=== PATIENT | female | born 1990 | race African-American/Black ===

== ENCOUNTER 2016-08-09 00:46 | Emergency (ER) | payer OTHER ==
[2016-08-09] MEDS ORDERED: SODIUM BICARBONATE 8.4% INJ 50 ML SYRINGE ONE (00:47)
[2016-08-09] MEDS ORDERED: EPINEPHrine 1MG/10ML SYRINGE 1.5IN ONE (00:47)
[2016-08-09] MEDS ORDERED: EPINEPHrine 1MG/10ML SYRINGE 1.5IN As Ordered ONE ×2 (01:22→01:26)
--- NOTE | 2016-08-09 05:21 | EDDOCDS ---
Nurse's Notes [facility] Name: Clara Magaña Age: 26 yrs Sex: Female : 1990 Arrival Date: 08/09/2016 Time: 00:46 Bed Family 1 Private MD: Sarthak Funez [facility] Diagnosis: Cardiac arrest, cause unspecified-PE suspected Presentation: 08/09 00:48 Presenting complaint: EMS states: pt laying face down on bed when EMS arrived. Pt ko2 responded to painful stimuli with moaning. Pt was maintaining own airway. She started having decreased respirations in the ambulance, EMS started manually bagging. Pt is 2 weeks . 00:48 Method Of Arrival: Ambulance ko2 00:48 Suicide/Homicide risk assessment- Unable to assess, the patient is critically ill. 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 Transition of care: patient was not received from another setting of care. Care prior to arrival: See EMS report. assisted ventilation, Saline lock initiated. Oxygen administered by EMS. 01:08 Acuity: MARCI Level 1 aug 03:26 Compressions began at 00:48. ko2 Triage Assessment: 00:48 General: Appears Behavior is listless. Pain: Unable to use pain scale. Patient is ko2 unresponsive. HIV screening NA for this visit pt unresponsive. The patient is triaged at the bedside. See Assessment in Nurses Notes section of ED record. Neurological:. Neurological: Level of Consciousness is unresponsive. Cardiovascular: Rhythm is PEA. Respiratory: Respiratory effort is weak. Derm: Skin is normal, Skin temperature is cool. 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 Vitamin Oral tab 1 tab once daily - PMHx: none; - PSHx: none; - Family history: Not pertinent. Assessment: 00:48 CPR assessment: unresponsive, no respiratory effort, Ambu ventilation, pulses absent w/ ko2 compressions. Cardiac rhythm is PEA. 00:53 CPR assessment: unresponsive, intubated, Ambu ventilation, red frothy secretions out of ko2 endotracheal tube. 00:56 CPR assessment: no respiratory effort, pulses absent w/ compressions. Cardiac rhythm is ko2 PEA. Neurological: Level of Consciousness is unresponsive. 01:02 CPR assessment: unresponsive, no respiratory effort, Ambu ventilation, pulses absent w/ ko2 compressions. Cardiac rhythm is PEA. 01:05 CPR assessment: no respiratory effort, Ambu ventilation, pulses absent w/ compressions. ko2 01:08 CPR assessment: unresponsive, intubated, Ambu ventilation, pulses absent w/ ko2 compressions. Cardiac rhythm is V tach. 01:11 CPR assessment: no respiratory effort, intubated, Ambu ventilation, pulses absent w/ ko2 compressions. Cardiac rhythm is V tach. Neurological: Level of Consciousness is unresponsive. 01:13 CPR assessment: unresponsive, no respiratory effort, intubated, Ambu ventilation, ko2 pulses absent w/ compressions. Cardiac rhythm is V tach. 01:16 CPR assessment: mechanical ventilation. CPR assessment: unresponsive, agonal ko2 respirations, no respiratory effort, Ambu ventilation, pulses absent w/ compressions. Cardiac rhythm is V tach. 01:19 CPR assessment: unresponsive, agonal respirations, no respiratory effort, intubated, ko2 Ambu ventilation, pulses absent w/ compressions. Cardiac rhythm is V tach. 01:25 CPR assessment: unresponsive, agonal respirations, no respiratory effort, Ambu ko2 ventilation, pulses absent w/ compressions. Cardiac rhythm is PEA. 01:29 CPR assessment: unresponsive, agonal respirations, no respiratory effort, Ambu ko2 ventilation, pulses absent w/ compressions. Cardiac rhythm is PEA. 01:33 CPR assessment: unresponsive, no respiratory effort, Ambu ventilation, pulses absent w/ ko2 compressions. Cardiac rhythm is PEA. 03:38 General: Unable to obtain blood pressure on pt . ko2 Social Work Consult: 01:53 Social Work Note: Assisted as needed. Extended emotional support. rb Vitals: 02:29 Log In Time N/A - ambulance arrival. ko2 ED Course: 00:47 Patient visited by Fidel Carey Data Consultant. ml3 00:47 Patient moved to Waiting ml3 00:48 [facility] is Private Physician. ml3 00:48 Leonor Lockhart,JENNIFER is Primary Nurse. ml3 00:48 Patient moved to 2 ml3 00:49 Amadou Hamilton MD is Attending Physician. pc 00:53 Intubation: 7.5 Fr. ETT placed orally. Performed by Dr. Hamilton Successful on first ko2 attempt. Placement verified by CO2 detector w/ + color change, auscultating bilateral breath sounds, Ventilated with Ambu bag. 22 cm at the lip. 00:55 Inserted saline lock: 20 gauge in right forearm. ko2 01:00 NGT inserted 18 Fr. Via orogastric route Returned gastric contents. ko2 01:08 Triage Initiated aug 01:09 Defibrillated with 200 joules. ko2 01:12 Defibrillated with 300 joules. ko2 01:17 Defibrillated with 360 joules. ko2 01:37 Patient visited by Amadou Hamilton MD. pc 01:38 Amadou Hamilton MD is Pronouncing Provider. pc 02:11 Trend VS was scanned into [employer] and attached to record. ml3 02:31 [facility] Payment Agreement was scanned into [employer] and attached to record. jp5 02:33 Patient name changed from Clara\S\\S\Early\S\ to Clara\S\ \S\Early. EDMS 04:24 PCR was scanned into [employer] and attached to record. ml3 04:58 Patient moved to Family 1 aug Administered Medications: 00:49 Drug: EPINEPHrine 1 mg [epinephrine HCl (PF) 1 mg/mL (1 mL) intravenous solution (1 ko2 mL)] Route: IVP; Site: left antecubital; 00:55 Drug: EPINEPHrine 1 mg [epinephrine HCl (PF) 1 mg/mL (1 mL) intravenous solution (1 ko2 mL)] Route: IVP; Site: left antecubital; 01:00 Drug: EPINEPHrine 1 mg [epinephrine HCl (PF) 1 mg/mL (1 mL) intravenous solution (1 ko2 mL)] Route: IVP; Site: right forearm; 01:00 Drug: Sodium Bicarbonate 1 amp Route: IVP; Site: right forearm; ko2 01:06 Drug: EPINEPHrine 1 mg [epinephrine HCl (PF) 1 mg/mL (1 mL) intravenous solution (1 ko2 mL)] Route: IVP; Site: right forearm; 01:10 Drug: EPINEPHrine 1 mg [epinephrine HCl (PF) 1 mg/mL (1 mL) intravenous solution (1 ko2 mL)] Route: IVP; Site: right forearm; 01:14 Drug: EPINEPHrine 1 mg [epinephrine HCl (PF) 1 mg/mL (1 mL) intravenous solution (1 ko2 mL)] Route: IVP; Site: right forearm; 01:20 Drug: EPINEPHrine 1 mg [epinephrine HCl (PF) 1 mg/mL (1 mL) intravenous solution (1 ko2 mL)] Route: IVP; Site: right forearm; 01:26 Drug: EPINEPHrine 1 mg [epinephrine HCl (PF) 1 mg/mL (1 mL) intravenous solution (1 ko2 mL)] Route: IVP; Site: right forearm; 01:29 Drug: EPINEPHrine 1 mg [epinephrine HCl (PF) 1 mg/mL (1 mL) intravenous solution (1 ko2 mL)] Route: IVP; Site: right forearm; Attachments: 02:11 Trend VS ml3 RT: 01:40 CPR Time: 55Minutes. Intubation: Performed by Dr. Hamilton. placed orally. 7.5 Fr. ETT jc3 Successful on first attempt. Placement verified by CO2 detector w/ + color change, auscultating bilateral breath sounds, Ventilated with Ambu bag. Order Results: There are currently no results for this order. Outcome: 01:38 Patient . pc 03:27 Code Team Members : Amadou Hamilton MD Respiratory Therapist: Jaime Mandel Other Team ko2 Members: Medications administered by Nursing Professor Of Biostatistics Estee Hart. CPR performed by Denita Taylor, HOSPICE CASE MANAGER Rosaura Diamond, HOSPICE CASE MANAGER Jason Galindo, HOSPICE CASE MANAGER Viri Hupmhries, Charge Nurse Nursing Professor Of Biostatistics: Estee Hart ED Instant Printer Operator: Tamara Fajardo. Rhythm strips are placed in the patient chart. Outcome Patient . Patient : Time of 01:33 Pronounced by Amadou Hamilton MD. Condition: . 05:02 Patient : Time of 01:33 Pronounced by Amadou Hamilton MD Family Notified: mata Magaña [phone] notifed of ED . [facility] Body released to ME ME notified Amadou Agarwal MD notified Dr Zendejas in ED at timer of resusitation. 05:20 Patient left the ED. mata Signatures: Dispatcher [employer] EDMS Amadou Hamilton MD MD pc Newman, Viri Sidhu RN RN mata Fajardo, Tamara, Fidel Mulligan, Data Consultant Unit marcellus3 Luis Antonio Nam3 Moody Gauthier,RN RN theodoreb Leonor LockhartRN RN ko2 Morales Bethroverto jp5 Corrections: (The following items were deleted from the chart) : 01:04 Allergies: Vitamin; yash berrios : 00:48 Presenting complaint: EMS states: pt laying face down on bed when EMS arrived. Pt ko2 responded to painful stimuli with moaning. Pt was maintaining own airway. She started having decreased respirations in the ambulance, EMS started manually bagging. ko2 : 00:48 Suicide/Homicide risk assessment- Unable to assess, the patient is critically ko2 ill. ko2 : 00:48 Care prior to arrival: See EMS report. assisted ventilation, Saline lock ko2 initiated. Oxygen administered by EMS. ko2 03:04 00:53 CPR assessment: unresponsive, intubated, mechanical ventilation, ko2 ko2 03:04 01:02 CPR assessment: unresponsive, no respiratory effort, pulses absent w/ ko2 compressions, ko2 03:04 01:05 CPR assessment: no respiratory effort, pulses absent w/ compressions, ko2 ko2 03:04 01:08 CPR assessment: unresponsive, pulses absent w/ compressions, ko2 ko2 03:04 01:11 CPR assessment: no respiratory effort, intubated, mechanical ventilation, pulses ko2 absent w/ compressions, ko2 03:04 01:13 CPR assessment: unresponsive, no respiratory effort, intubated, mechanical ko2 ventilation, pulses absent w/ compressions, ko2 03:04 01:16 CPR assessment: unresponsive, agonal respirations, no respiratory effort, pulses ko2 absent w/ compressions, ko2 03:04 01:19 CPR assessment: unresponsive, agonal respirations, no respiratory effort, ko2 intubated, Ambu ventilation, pulses absent w/ compressions, ko2 03:26 00:53 Intubation: 7.5 Fr. ETT placed orally. Performed by Dr. Hamilton Successful on first ko2 attempt. Placement verified by auscultating bilateral breath sounds, Ventilated with Ambu bag. 22 cm at the lip. ko2 03:33 01:08 Defibrillated with 200 joules. ko2 ko2 03:36 00:53 CPR assessment: unresponsive, intubated, Ambu ventilation, ko2 ko2 MTDD
--- NOTE | 2016-08-09 05:21 | EDDOCDS ---
Physician Documentation [facility] Name: Clara Magaña Age: 26 yrs Sex: Female : 1990 Arrival Date: 08/09/2016 Time: 00:46 Bed Family 1 Private MD: Sarthak Funez [facility] Disposition: 08/09 02:38 Critical Care:. pc Disposition: Patient pronounced on 08/09/16 01:33 by Amadou Hamilton. Impression: Cardiac arrest, cause unspecified - PE suspected. HPI: 01:38 This 26 yrs old Female presents to ER with complaints of Unresponsive. pc 01:38 The history is obtained from the patient's family/friend, EMS providers. She is 2 weeks pc post- from an uncomplicated vaginal delivery and has been in good health. Her S.O. was getting ready to take a shower and she was in the bedroom with him. She suddenly complained of feeling hot and he went ot get a cold face cloth for her. He came out of the bathroom and saw her slump to her hands and knees. She was moaning and then fell forward onto the floor and became unresponsive. He lifted her up onto the bed and EMS was called. They found her unresponsive, moaning to painful stimuli only, with slow respirations and with a pulse.. They transported her here, where on en route, she became apneic and required BVM respirations. She arrived pulseless and unresponsive. ACLS was initiated. She had copious amounts of bloody, frothy sputum suctioned and continually exiting the BVM vent. She did not recover a pulse at any time. She had a wide complex rhythm that with defibrillation at 200/300/360J did not produce a different rhythm. ACLS protocols for PEA were continued without success. AT 0133h, all efforts were terminated. Historical: - Allergies: No known drug Allergies; - Home Meds: 1. Vitamin Oral tab 1 tab once daily - PMHx: none; - PSHx: none; - Family history: Not pertinent. 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 Calves pc soft and supple. Pupils 8mm and not reactive. No spontaneous heart sounds, no spontaneous respirations. . Procedures: 02:22 Intubation: Ventilated with 100% NRB prior to procedure. O2 saturation prior to pc procedure was 80 %. Intubated orally using # 4 Luis blade with 7.5 Fr. ETT. was successful on first attempt. Ventilated with Ambu bag. Placement verified by CO2 detector w/ + color change, auscultating bilateral breath sounds, O2 saturation after procedure was 88 %. MDM: 01:49 Differential Diagnosis: cardiac arrest, suspected PE. The patient has been re-examined pc and re-evaluated. There is no appreciated change of the patient's symptoms at this time. 02:11 Trend VS was scanned into [employer] and attached to record. ml3 02:22 Physician consultation: Dr. Timoteo aPvon regarding patient's condition. 02:31 [facility] Payment Agreement was scanned into [employer] and attached to record. 5 02:31 Financial registration complete. jp5 03:12 EPINEPHrine (1:10,000) 1 mg IVP once ordered. ko2 03:15 EPINEPHrine (1:10,000) 1 mg IVP once ordered. ko2 03:16 EPINEPHrine (1:10,000) 1 mg IVP once ordered. ko2 03:17 Sodium Bicarbonate 1 amp IVP once ordered. ko2 03:18 EPINEPHrine (1:10,000) 1 mg IVP once ordered. ko2 03:19 EPINEPHrine (1:10,000) 1 mg IVP once ordered. ko2 03:22 EPINEPHrine (1:10,000) 1 mg IVP once ordered. ko2 03:23 EPINEPHrine (1:10,000) 1 mg IVP once ordered. ko2 03:24 EPINEPHrine (1:10,000) 1 mg IVP once ordered. ko2 03:24 EPINEPHrine (1:10,000) 1 mg IVP once ordered. ko2 04:24 PCR was scanned into [employer] and attached to record. ml3 Administered Medications: 00:49 Drug: EPINEPHrine 1 mg [epinephrine HCl (PF) 1 mg/mL (1 mL) intravenous solution (1 ko2 mL)] Route: IVP; Site: left antecubital; 00:55 Drug: EPINEPHrine 1 mg [epinephrine HCl (PF) 1 mg/mL (1 mL) intravenous solution (1 ko2 mL)] Route: IVP; Site: left antecubital; 01:00 Drug: EPINEPHrine 1 mg [epinephrine HCl (PF) 1 mg/mL (1 mL) intravenous solution (1 ko2 mL)] Route: IVP; Site: right forearm; 01:00 Drug: Sodium Bicarbonate 1 amp Route: IVP; Site: right forearm; ko2 01:06 Drug: EPINEPHrine 1 mg [epinephrine HCl (PF) 1 mg/mL (1 mL) intravenous solution (1 ko2 mL)] Route: IVP; Site: right forearm; 01:10 Drug: EPINEPHrine 1 mg [epinephrine HCl (PF) 1 mg/mL (1 mL) intravenous solution (1 ko2 mL)] Route: IVP; Site: right forearm; 01:14 Drug: EPINEPHrine 1 mg [epinephrine HCl (PF) 1 mg/mL (1 mL) intravenous solution (1 ko2 mL)] Route: IVP; Site: right forearm; 01:20 Drug: EPINEPHrine 1 mg [epinephrine HCl (PF) 1 mg/mL (1 mL) intravenous solution (1 ko2 mL)] Route: IVP; Site: right forearm; 01:26 Drug: EPINEPHrine 1 mg [epinephrine HCl (PF) 1 mg/mL (1 mL) intravenous solution (1 ko2 mL)] Route: IVP; Site: right forearm; 01:29 Drug: EPINEPHrine 1 mg [epinephrine HCl (PF) 1 mg/mL (1 mL) intravenous solution (1 ko2 mL)] Route: IVP; Site: right forearm; Critical Care Time: 02:38 Critical care time: Bedside Care: 50 minutes, Consultation: 10 minutes, Family pc Intervention: 20 minutes. Total time: 80 minutes Signatures: Amadou Hamilton MD MD pc Newman, Jill New, RN RN jan Lopresti, Mary-Elizabeth, Channeler Insole Unit ml3 Moody Gauthier RN RN jmb Ogden, Kari, RN RN ko2 Sam Nielsen jp5 The chart was reviewed and I authenticate all verbal orders and agree with the evaluation and treatment provided.Corrections: (The following items were deleted from the chart) 02:24 01:04 Allergies: Vitamin; yash berrios Attachments: 02:31 [facility] Payment Agreement jp5 MTDD
--- NOTE | 2016-08-09 05:38 | EDDOCDS ---
Physician Documentation [facility] Name: Clara Magaña Age: 26 yrs Sex: Female : 1990 Arrival Date: 08/09/2016 Time: 00:46 Bed Family 1 Private MD: Sarthak Funez [facility] Disposition: 08/09 02:38 Critical Care:. pc Disposition: Patient pronounced on 08/09/16 01:33 by Amadou Hamilton. Impression: Cardiac arrest, cause unspecified - PE suspected. HPI: 01:38 This 26 yrs old Female presents to ER with complaints of Unresponsive. pc 01:38 The history is obtained from the patient's family/friend, EMS providers. She is 2 weeks pc post- from an uncomplicated vaginal delivery and has been in good health. Her S.O. was getting ready to take a shower and she was in the bedroom with him. She suddenly complained of feeling hot and he went ot get a cold face cloth for her. He came out of the bathroom and saw her slump to her hands and knees. She was moaning and then fell forward onto the floor and became unresponsive. He lifted her up onto the bed and EMS was called. They found her unresponsive, moaning to painful stimuli only, with slow respirations and with a pulse.. They transported her here, where on en route, she became apneic and required BVM respirations. She arrived pulseless and unresponsive. ACLS was initiated. She had copious amounts of bloody, frothy sputum suctioned and continually exiting the BVM vent. She did not recover a pulse at any time. She had a wide complex rhythm that with defibrillation at 200/300/360J did not produce a different rhythm. ACLS protocols for PEA were continued without success. AT 0133h, all efforts were terminated. Historical: - Allergies: No known drug Allergies; - Home Meds: 1. Vitamin Oral tab 1 tab once daily - PMHx: none; - PSHx: none; - Family history: Not pertinent. OPERATIONS ADVISOR: 02:29 LMP N/A - Recent ko2 Exam: 01:47 General Appearance: No signs of trauma on head or neck, thorax or extremities. Calves pc soft and supple. Pupils 8mm and not reactive. No spontaneous heart sounds, no spontaneous respirations. . Procedures: 02:22 Intubation: Ventilated with 100% NRB prior to procedure. O2 saturation prior to pc procedure was 80 %. Intubated orally using # 4 Luis blade with 7.5 Fr. ETT. was successful on first attempt. Ventilated with Ambu bag. Placement verified by CO2 detector w/ + color change, auscultating bilateral breath sounds, O2 saturation after procedure was 88 %. MDM: 01:49 Differential Diagnosis: cardiac arrest, suspected PE. The patient has been re-examined pc and re-evaluated. There is no appreciated change of the patient's symptoms at this time. 02:11 Trend VS was scanned into [employer] and attached to record. ml3 02:22 Physician consultation: Dr. Timoteo Pavon regarding patient's condition. 02:31 [facility] Payment Agreement was scanned into [employer] and attached to record. 5 02:31 Financial registration complete. jp5 03:12 EPINEPHrine (1:10,000) 1 mg IVP once ordered. ko2 03:15 EPINEPHrine (1:10,000) 1 mg IVP once ordered. ko2 03:16 EPINEPHrine (1:10,000) 1 mg IVP once ordered. ko2 03:17 Sodium Bicarbonate 1 amp IVP once ordered. ko2 03:18 EPINEPHrine (1:10,000) 1 mg IVP once ordered. ko2 03:19 EPINEPHrine (1:10,000) 1 mg IVP once ordered. ko2 03:22 EPINEPHrine (1:10,000) 1 mg IVP once ordered. ko2 03:23 EPINEPHrine (1:10,000) 1 mg IVP once ordered. ko2 03:24 EPINEPHrine (1:10,000) 1 mg IVP once ordered. ko2 03:24 EPINEPHrine (1:10,000) 1 mg IVP once ordered. ko2 04:24 PCR was scanned into [employer] and attached to record. ml3 Administered Medications: 00:49 Drug: EPINEPHrine 1 mg [epinephrine HCl (PF) 1 mg/mL (1 mL) intravenous solution (1 ko2 mL)] Route: IVP; Site: left antecubital; 00:55 Drug: EPINEPHrine 1 mg [epinephrine HCl (PF) 1 mg/mL (1 mL) intravenous solution (1 ko2 mL)] Route: IVP; Site: left antecubital; 01:00 Drug: EPINEPHrine 1 mg [epinephrine HCl (PF) 1 mg/mL (1 mL) intravenous solution (1 ko2 mL)] Route: IVP; Site: right forearm; 01:00 Drug: Sodium Bicarbonate 1 amp Route: IVP; Site: right forearm; ko2 01:06 Drug: EPINEPHrine 1 mg [epinephrine HCl (PF) 1 mg/mL (1 mL) intravenous solution (1 ko2 mL)] Route: IVP; Site: right forearm; 01:10 Drug: EPINEPHrine 1 mg [epinephrine HCl (PF) 1 mg/mL (1 mL) intravenous solution (1 ko2 mL)] Route: IVP; Site: right forearm; 01:14 Drug: EPINEPHrine 1 mg [epinephrine HCl (PF) 1 mg/mL (1 mL) intravenous solution (1 ko2 mL)] Route: IVP; Site: right forearm; 01:20 Drug: EPINEPHrine 1 mg [epinephrine HCl (PF) 1 mg/mL (1 mL) intravenous solution (1 ko2 mL)] Route: IVP; Site: right forearm; 01:26 Drug: EPINEPHrine 1 mg [epinephrine HCl (PF) 1 mg/mL (1 mL) intravenous solution (1 ko2 mL)] Route: IVP; Site: right forearm; 01:29 Drug: EPINEPHrine 1 mg [epinephrine HCl (PF) 1 mg/mL (1 mL) intravenous solution (1 ko2 mL)] Route: IVP; Site: right forearm; Critical Care Time: 02:38 Critical care time: Bedside Care: 50 minutes, Consultation: 10 minutes, Family pc Intervention: 20 minutes. Total time: 80 minutes Signatures: Amadou Hamilton MD MD pc Newman, Jill New, RN RN jan Lopresti, Mary-Elizabeth, Deck Lid Fitter Unit ml3 Moody Gauthier RN RN jmb Ogden, Kari, RN RN ko2 Sam Nielsen jp5 The chart was reviewed and I authenticate all verbal orders and agree with the evaluation and treatment provided.Corrections: (The following items were deleted from the chart) 02:24 01:04 Allergies: Vitamin; yash berrios Attachments: 02:31 [facility] Payment Agreement jp5 MTDD
--- NOTE | 2016-08-09 05:38 | EDDOCDS ---
Nurse's Notes [facility] Name: Clara Magaña Age: 26 yrs Sex: Female : 1990 Arrival Date: 08/09/2016 Time: 00:46 Bed Family 1 Private MD: Sarthak Funez [facility] Diagnosis: Cardiac arrest, cause unspecified-PE suspected Presentation: 08/09 00:48 Presenting complaint: EMS states: pt laying face down on bed when EMS arrived. Pt ko2 responded to painful stimuli with moaning. Pt was maintaining own airway. She started having decreased respirations in the ambulance, EMS started manually bagging. Pt is 2 weeks . Per significant other last time pt was known well was at 2330. 00:48 Method Of Arrival: Ambulance ko2 00:48 Suicide/Homicide risk assessment- Unable to assess, the patient is critically ill. 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 Transition of care: patient was not received from another setting of care. Care prior to arrival: See EMS report. assisted ventilation, Saline lock initiated. Oxygen administered by EMS. 01:08 Acuity: MARCI Level 1 aug 03:26 Compressions began at 00:48. ko2 Triage Assessment: 00:48 General: Appears Behavior is listless. Pain: Unable to use pain scale. Patient is ko2 unresponsive. HIV screening NA for this visit pt unresponsive. The patient is triaged at the bedside. See Assessment in Nurses Notes section of ED record. Neurological:. Neurological: Level of Consciousness is unresponsive. Cardiovascular: Rhythm is PEA. Respiratory: Respiratory effort is weak. Derm: Skin is normal, Skin temperature is cool. 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 Vitamin Oral tab 1 tab once daily - PMHx: none; - PSHx: none; - Family history: Not pertinent. Assessment: 00:48 CPR assessment: unresponsive, no respiratory effort, Ambu ventilation, pulses absent w/ ko2 compressions. Cardiac rhythm is PEA. 00:53 CPR assessment: unresponsive, intubated, Ambu ventilation, red frothy secretions out of ko2 endotracheal tube. 00:56 CPR assessment: no respiratory effort, pulses absent w/ compressions. Cardiac rhythm is ko2 PEA. Neurological: Level of Consciousness is unresponsive. 01:02 CPR assessment: unresponsive, no respiratory effort, Ambu ventilation, pulses absent w/ ko2 compressions. Cardiac rhythm is PEA. 01:05 CPR assessment: no respiratory effort, Ambu ventilation, pulses absent w/ compressions. ko2 01:08 CPR assessment: unresponsive, intubated, Ambu ventilation, pulses absent w/ ko2 compressions. Cardiac rhythm is V tach. 01:11 CPR assessment: no respiratory effort, intubated, Ambu ventilation, pulses absent w/ ko2 compressions. Cardiac rhythm is V tach. Neurological: Level of Consciousness is unresponsive. 01:13 CPR assessment: unresponsive, no respiratory effort, intubated, Ambu ventilation, ko2 pulses absent w/ compressions. Cardiac rhythm is V tach. 01:16 CPR assessment: mechanical ventilation. CPR assessment: unresponsive, agonal ko2 respirations, no respiratory effort, Ambu ventilation, pulses absent w/ compressions. Cardiac rhythm is V tach. 01:19 CPR assessment: unresponsive, agonal respirations, no respiratory effort, intubated, ko2 Ambu ventilation, pulses absent w/ compressions. Cardiac rhythm is V tach. 01:25 CPR assessment: unresponsive, agonal respirations, no respiratory effort, Ambu ko2 ventilation, pulses absent w/ compressions. Cardiac rhythm is PEA. 01:29 CPR assessment: unresponsive, agonal respirations, no respiratory effort, Ambu ko2 ventilation, pulses absent w/ compressions. Cardiac rhythm is PEA. 01:33 CPR assessment: unresponsive, no respiratory effort, Ambu ventilation, pulses absent w/ ko2 compressions. Cardiac rhythm is PEA. 01:39 General: Staff Duty Sgt Cabrera notified to contact [facility] at this time.. aug 02:55 General: Agent Renettabinh Escalante here from [facility].. aug 03:38 General: Unable to obtain blood pressure on pt . ko2 Social Work Consult: 01:53 Social Work Note: Assisted as needed. Extended emotional support. rb Vitals: 02:29 Log In Time N/A - ambulance arrival. ko2 ED Course: 00:47 Patient visited by Fidel Carey, Outside Dealer Sales Representative. ml3 00:47 Patient moved to Waiting ml3 00:48 [place] is Private Physician. ml3 00:48 Leonor Lockhart,RN is Primary Nurse. ml3 00:48 Patient moved to 2 ml3 00:49 Amadou Hamilton MD is Attending Physician. pc 00:53 Intubation: 7.5 Fr. ETT placed orally. Performed by Dr. Hamilton Successful on first ko2 attempt. Placement verified by CO2 detector w/ + color change, auscultating bilateral breath sounds, Ventilated with Ambu bag. 22 cm at the lip. 00:55 Inserted saline lock: 20 gauge in right forearm. ko2 01:00 NGT inserted 18 Fr. Via orogastric route Returned gastric contents. ko2 01:08 Triage Initiated aug 01:09 Defibrillated with 200 joules. ko2 01:12 Defibrillated with 300 joules. ko2 01:17 Defibrillated with 360 joules. ko2 01:37 Patient visited by Amadou Hamilton MD. pc 01:38 Amadou Hamilton MD is Pronouncing Provider. pc 02:11 Trend VS was scanned into [employer] and attached to record. ml3 02:31 [facility] Payment Agreement was scanned into [employer] and attached to record. jp5 02:33 Patient name changed from Clara\S\\S\Early\S\ to Clara\S\ \S\Early. EDMS 04:24 PCR was scanned into [employer] and attached to record. ml3 04:58 Patient moved to Family 1 aug Administered Medications: 00:49 Drug: EPINEPHrine 1 mg [epinephrine HCl (PF) 1 mg/mL (1 mL) intravenous solution (1 ko2 mL)] Route: IVP; Site: left antecubital; 00:55 Drug: EPINEPHrine 1 mg [epinephrine HCl (PF) 1 mg/mL (1 mL) intravenous solution (1 ko2 mL)] Route: IVP; Site: left antecubital; 01:00 Drug: EPINEPHrine 1 mg [epinephrine HCl (PF) 1 mg/mL (1 mL) intravenous solution (1 ko2 mL)] Route: IVP; Site: right forearm; 01:00 Drug: Sodium Bicarbonate 1 amp Route: IVP; Site: right forearm; ko2 01:06 Drug: EPINEPHrine 1 mg [epinephrine HCl (PF) 1 mg/mL (1 mL) intravenous solution (1 ko2 mL)] Route: IVP; Site: right forearm; 01:10 Drug: EPINEPHrine 1 mg [epinephrine HCl (PF) 1 mg/mL (1 mL) intravenous solution (1 ko2 mL)] Route: IVP; Site: right forearm; 01:14 Drug: EPINEPHrine 1 mg [epinephrine HCl (PF) 1 mg/mL (1 mL) intravenous solution (1 ko2 mL)] Route: IVP; Site: right forearm; 01:20 Drug: EPINEPHrine 1 mg [epinephrine HCl (PF) 1 mg/mL (1 mL) intravenous solution (1 ko2 mL)] Route: IVP; Site: right forearm; 01:26 Drug: EPINEPHrine 1 mg [epinephrine HCl (PF) 1 mg/mL (1 mL) intravenous solution (1 ko2 mL)] Route: IVP; Site: right forearm; 01:29 Drug: EPINEPHrine 1 mg [epinephrine HCl (PF) 1 mg/mL (1 mL) intravenous solution (1 ko2 mL)] Route: IVP; Site: right forearm; Attachments: 02:11 Trend VS ml3 RT: 01:40 CPR Time: 55Minutes. Intubation: Performed by Dr. Hamilton. placed orally. 7.5 Fr. ETT jc3 Successful on first attempt. Placement verified by CO2 detector w/ + color change, auscultating bilateral breath sounds, Ventilated with Ambu bag. Order Results: There are currently no results for this order. Outcome: 01:38 Patient . pc 03:27 Code Team Members : Amadou Hamilton MD Respiratory Therapist: Jaime Mandel Other Team ko2 Members: Medications administered by Nursing Furnace Attendant Estee Hart. CPR performed by Denita Brandon, MOTION PICTURE CAMERA OPERATOR Rosaura Diamond, MOTION PICTURE CAMERA OPERATOR Jason Galindo, MOTION PICTURE CAMERA OPERATOR Viri Humphries, Charge Nurse Nursing Furnace Attendant: Estee Hart ED Soft Shoe Dancer: Tamara Fajardo. Rhythm strips are placed in the patient chart. Outcome Patient . Patient : Time of 01:33 Pronounced by Amadou Hamilton MD. Condition: . 05:02 Patient : Time of 01:33 Pronounced by Amadou Hamilton MD Family Notified: mata Magaña [phone] notifed of ED . Body to melba Body released to ME ME notified Amadou Agarwal MD notified Dr Zendejas in ED at timer of resusitation. 05:20 Patient left the ED. aug 05:36 Patient left the ED. ko2 Signatures: Dispatcher [employer] EDMS Amadou Hamilton MD MD pc Newman, Jill New RN RN mata Fajardo, Tamara, PSA PSA rb Fidel Carey, Outside Dealer Sales Representative Unit ml3 Luis Antonio Nam jc3 Moody Gauthier RN RN jmb Ogden, Kari, RN RN ko2 Price, Jennalee jp5 Corrections: (The following items were deleted from the chart) 02:24 01:04 Allergies: Vitamin; jmb yash 02:24 00:48 Presenting complaint: EMS states: pt laying face down on bed when EMS arrived. Pt ko2 responded to painful stimuli with moaning. Pt was maintaining own airway. She started having decreased respirations in the ambulance, EMS started manually bagging. ko2 : 00:48 Suicide/Homicide risk assessment- Unable to assess, the patient is critically ko2 ill. ko2 : 00:48 Care prior to arrival: See EMS report. assisted ventilation, Saline lock ko2 initiated. Oxygen administered by EMS. ko2 03:04 00:53 CPR assessment: unresponsive, intubated, mechanical ventilation, ko2 ko2 03:04 01:02 CPR assessment: unresponsive, no respiratory effort, pulses absent w/ ko2 compressions, ko2 03:04 01:05 CPR assessment: no respiratory effort, pulses absent w/ compressions, ko2 ko2 03:04 01:08 CPR assessment: unresponsive, pulses absent w/ compressions, ko2 ko2 03:04 01:11 CPR assessment: no respiratory effort, intubated, mechanical ventilation, pulses ko2 absent w/ compressions, ko2 03:04 01:13 CPR assessment: unresponsive, no respiratory effort, intubated, mechanical ko2 ventilation, pulses absent w/ compressions, ko2 03:04 01:16 CPR assessment: unresponsive, agonal respirations, no respiratory effort, pulses ko2 absent w/ compressions, ko2 03:04 01:19 CPR assessment: unresponsive, agonal respirations, no respiratory effort, ko2 intubated, Ambu ventilation, pulses absent w/ compressions, ko2 03:26 00:53 Intubation: 7.5 Fr. ETT placed orally. Performed by Dr. Hamilton Successful on first ko2 attempt. Placement verified by auscultating bilateral breath sounds, Ventilated with Ambu bag. 22 cm at the lip. ko2 03:33 01:08 Defibrillated with 200 joules. ko2 ko2 03:36 00:53 CPR assessment: unresponsive, intubated, Ambu ventilation, ko2 ko2 05:35 00:48 Presenting complaint: EMS states: pt laying face down on bed when EMS arrived. Pt ko2 responded to painful stimuli with moaning. Pt was maintaining own airway. She started having decreased respirations in the ambulance, EMS started manually bagging. Pt is 2 weeks . ko2 MTDD
--- NOTE | 2016-08-11 06:37 | EDDOCDS ---
Physician Documentation [facility] Name: Clara Magaña Age: 26 yrs Sex: Female : 1990 Arrival Date: 08/09/2016 Time: 00:46 Bed Family 1 Private MD: Sarthak Funez [facility] Disposition: 08/09 02:38 Critical Care:. pc Disposition: Patient pronounced on 08/09/16 01:33 by Amadou Hamilton. Impression: Cardiac arrest, cause unspecified - PE suspected. HPI: 01:38 This 26 yrs old Female presents to ER with complaints of Unresponsive. pc 01:38 The history is obtained from the patient's family/friend, EMS providers. She is 2 weeks pc post- from an uncomplicated vaginal delivery and has been in good health. Her S.O. was getting ready to take a shower and she was in the bedroom with him. She suddenly complained of feeling hot and he went ot get a cold face cloth for her. He came out of the bathroom and saw her slump to her hands and knees. She was moaning and then fell forward onto the floor and became unresponsive. He lifted her up onto the bed and EMS was called. They found her unresponsive, moaning to painful stimuli only, with slow respirations and with a pulse.. They transported her here, where on en route, she became apneic and required BVM respirations. She arrived pulseless and unresponsive. ACLS was initiated. She had copious amounts of bloody, frothy sputum suctioned and continually exiting the BVM vent. She did not recover a pulse at any time. She had a wide complex rhythm that with defibrillation at 200/300/360J did not produce a different rhythm. ACLS protocols for PEA were continued without success. AT 0133h, all efforts were terminated. Historical: - Allergies: No known drug Allergies; - Home Meds: 1. Vitamin Oral tab 1 tab once daily - PMHx: none; - PSHx: none; - Family history: Not pertinent. 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 Calves pc soft and supple. Pupils 8mm and not reactive. No spontaneous heart sounds, no spontaneous respirations. . Procedures: 02:22 Intubation: Ventilated with 100% NRB prior to procedure. O2 saturation prior to pc procedure was 80 %. Intubated orally using # 4 Luis blade with 7.5 Fr. ETT. was successful on first attempt. Ventilated with Ambu bag. Placement verified by CO2 detector w/ + color change, auscultating bilateral breath sounds, O2 saturation after procedure was 88 %. MDM: 01:49 Differential Diagnosis: cardiac arrest, suspected PE. The patient has been re-examined pc and re-evaluated. There is no appreciated change of the patient's symptoms at this time. 02:11 Trend VS was scanned into [employer] and attached to record. ml3 02:22 Physician consultation: Dr. Timoteo Pavon regarding patient's condition. 02:31 [facility] Payment Agreement was scanned into [employer] and attached to record. 5 02:31 Financial registration complete. jp5 03:12 EPINEPHrine (1:10,000) 1 mg IVP once ordered. ko2 03:15 EPINEPHrine (1:10,000) 1 mg IVP once ordered. ko2 03:16 EPINEPHrine (1:10,000) 1 mg IVP once ordered. ko2 03:17 Sodium Bicarbonate 1 amp IVP once ordered. ko2 03:18 EPINEPHrine (1:10,000) 1 mg IVP once ordered. ko2 03:19 EPINEPHrine (1:10,000) 1 mg IVP once ordered. ko2 03:22 EPINEPHrine (1:10,000) 1 mg IVP once ordered. ko2 03:23 EPINEPHrine (1:10,000) 1 mg IVP once ordered. ko2 03:24 EPINEPHrine (1:10,000) 1 mg IVP once ordered. ko2 03:24 EPINEPHrine (1:10,000) 1 mg IVP once ordered. ko2 04:24 PCR was scanned into [employer] and attached to record. ml3 14:39 Trend VS was scanned into [employer] and attached to record. gb 14:40 Rhythm Strip was scanned into [employer] and attached to record. gb 14:40 Other: CHECKLIST FOR PT was scanned into [employer] and attached to record. gb 14:41 Other: CERTIFICATE OF IDENTIFICATION was scanned into [employer] and attached to record. gb Administered Medications: 00:49 Drug: EPINEPHrine 1 mg [epinephrine HCl (PF) 1 mg/mL (1 mL) intravenous solution (1 ko2 mL)] Route: IVP; Site: left antecubital; 00:55 Drug: EPINEPHrine 1 mg [epinephrine HCl (PF) 1 mg/mL (1 mL) intravenous solution (1 ko2 mL)] Route: IVP; Site: left antecubital; 01:00 Drug: EPINEPHrine 1 mg [epinephrine HCl (PF) 1 mg/mL (1 mL) intravenous solution (1 ko2 mL)] Route: IVP; Site: right forearm; 01:00 Drug: Sodium Bicarbonate 1 amp Route: IVP; Site: right forearm; ko2 01:06 Drug: EPINEPHrine 1 mg [epinephrine HCl (PF) 1 mg/mL (1 mL) intravenous solution (1 ko2 mL)] Route: IVP; Site: right forearm; 01:10 Drug: EPINEPHrine 1 mg [epinephrine HCl (PF) 1 mg/mL (1 mL) intravenous solution (1 ko2 mL)] Route: IVP; Site: right forearm; 01:14 Drug: EPINEPHrine 1 mg [epinephrine HCl (PF) 1 mg/mL (1 mL) intravenous solution (1 ko2 mL)] Route: IVP; Site: right forearm; 01:20 Drug: EPINEPHrine 1 mg [epinephrine HCl (PF) 1 mg/mL (1 mL) intravenous solution (1 ko2 mL)] Route: IVP; Site: right forearm; 01:26 Drug: EPINEPHrine 1 mg [epinephrine HCl (PF) 1 mg/mL (1 mL) intravenous solution (1 ko2 mL)] Route: IVP; Site: right forearm; 01:29 Drug: EPINEPHrine 1 mg [epinephrine HCl (PF) 1 mg/mL (1 mL) intravenous solution (1 ko2 mL)] Route: IVP; Site: right forearm; Critical Care Time: 02:38 Critical care time: Bedside Care: 50 minutes, Consultation: 10 minutes, Family pc Intervention: 20 minutes. Total time: 80 minutes Signatures: Amadou Hamilton MD MD pc Newman, Jill New, RN RN jan Barnhardt, Gloria, Reg Reg gb Lopresti, Mary-Rizwana, Realtime Court Reporter Unit ml3 Moody Gauthier RN RN jmb Ogden, Kari, RN RN ko2 Sam Nielsen jp5 The chart was reviewed and I authenticate all verbal orders and agree with the evaluation and treatment provided.Corrections: (The following items were deleted from the chart) 02:24 01:04 Allergies: Vitamin; yash berrios Attachments: 02:31 [facility] Payment Agreement jp5 Chart Complete MTDD
--- NOTE | 2016-08-11 06:37 | EDDOCDS ---
Nurse's Notes [facility] Name: Clara Magaña Age: 26 yrs Sex: Female : 1990 Arrival Date: 08/09/2016 Time: 00:46 Bed Family 1 Private MD: Sarthak Funez [facility] Diagnosis: Cardiac arrest, cause unspecified-PE suspected Presentation: 08/09 00:48 Presenting complaint: EMS states: pt laying face down on bed when EMS arrived. Pt ko2 responded to painful stimuli with moaning. Pt was maintaining own airway. She started having decreased respirations in the ambulance, EMS started manually bagging. Pt is 2 weeks . Per significant other last time pt was known well was at 2330. 00:48 Method Of Arrival: Ambulance ko2 00:48 Suicide/Homicide risk assessment- Unable to assess, the patient is critically ill. 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 Transition of care: patient was not received from another setting of care. Care prior to arrival: See EMS report. assisted ventilation, Saline lock initiated. Oxygen administered by EMS. 01:08 Acuity: MARCI Level 1 aug 03:26 Compressions began at 00:48. ko2 Triage Assessment: 00:48 General: Appears Behavior is listless. Pain: Unable to use pain scale. Patient is ko2 unresponsive. HIV screening NA for this visit pt unresponsive. The patient is triaged at the bedside. See Assessment in Nurses Notes section of ED record. Neurological:. Neurological: Level of Consciousness is unresponsive. Cardiovascular: Rhythm is PEA. Respiratory: Respiratory effort is weak. Derm: Skin is normal, Skin temperature is cool. 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 Vitamin Oral tab 1 tab once daily - PMHx: none; - PSHx: none; - Family history: Not pertinent. Assessment: 00:48 CPR assessment: unresponsive, no respiratory effort, Ambu ventilation, pulses absent w/ ko2 compressions. Cardiac rhythm is PEA. 00:53 CPR assessment: unresponsive, intubated, Ambu ventilation, red frothy secretions out of ko2 endotracheal tube. 00:56 CPR assessment: no respiratory effort, pulses absent w/ compressions. Cardiac rhythm is ko2 PEA. Neurological: Level of Consciousness is unresponsive. 01:02 CPR assessment: unresponsive, no respiratory effort, Ambu ventilation, pulses absent w/ ko2 compressions. Cardiac rhythm is PEA. 01:05 CPR assessment: no respiratory effort, Ambu ventilation, pulses absent w/ compressions. ko2 01:08 CPR assessment: unresponsive, intubated, Ambu ventilation, pulses absent w/ ko2 compressions. Cardiac rhythm is V tach. 01:11 CPR assessment: no respiratory effort, intubated, Ambu ventilation, pulses absent w/ ko2 compressions. Cardiac rhythm is V tach. Neurological: Level of Consciousness is unresponsive. 01:13 CPR assessment: unresponsive, no respiratory effort, intubated, Ambu ventilation, ko2 pulses absent w/ compressions. Cardiac rhythm is V tach. 01:16 CPR assessment: mechanical ventilation. CPR assessment: unresponsive, agonal ko2 respirations, no respiratory effort, Ambu ventilation, pulses absent w/ compressions. Cardiac rhythm is V tach. 01:19 CPR assessment: unresponsive, agonal respirations, no respiratory effort, intubated, ko2 Ambu ventilation, pulses absent w/ compressions. Cardiac rhythm is V tach. 01:25 CPR assessment: unresponsive, agonal respirations, no respiratory effort, Ambu ko2 ventilation, pulses absent w/ compressions. Cardiac rhythm is PEA. 01:29 CPR assessment: unresponsive, agonal respirations, no respiratory effort, Ambu ko2 ventilation, pulses absent w/ compressions. Cardiac rhythm is PEA. 01:33 CPR assessment: unresponsive, no respiratory effort, Ambu ventilation, pulses absent w/ ko2 compressions. Cardiac rhythm is PEA. 01:39 General: Staff Duty Sgt Cabrera notified to contact [facility] at this time.. aug 02:55 General: Agent Renettabinh Escalante here from [facility].. aug 03:38 General: Unable to obtain blood pressure on pt . ko2 Social Work Consult: 01:53 Social Work Note: Assisted as needed. Extended emotional support. rb Vitals: 02:29 Log In Time N/A - ambulance arrival. ko2 ED Course: 00:47 Patient visited by Fidel Carey, Seo Intern. ml3 00:47 Patient moved to Waiting ml3 00:48 [place], [facility] is Private Physician. ml3 00:48 Leonor Lockhart,RN is Primary Nurse. ml3 00:48 Patient moved to 2 ml3 00:49 Amadou Hamilton MD is Attending Physician. pc 00:53 Intubation: 7.5 Fr. ETT placed orally. Performed by Dr. Hamilton Successful on first ko2 attempt. Placement verified by CO2 detector w/ + color change, auscultating bilateral breath sounds, Ventilated with Ambu bag. 22 cm at the lip. 00:55 Inserted saline lock: 20 gauge in right forearm. ko2 01:00 NGT inserted 18 Fr. Via orogastric route Returned gastric contents. ko2 01:08 Triage Initiated aug 01:09 Defibrillated with 200 joules. ko2 01:12 Defibrillated with 300 joules. ko2 01:17 Defibrillated with 360 joules. ko2 01:37 Patient visited by Amadou Hamilton MD. pc 01:38 Amadou Hamilton MD is Pronouncing Provider. pc 02:11 Trend VS was scanned into [employer] and attached to record. ml3 02:31 [facility] [place] was scanned into [employer] and attached to record. jp5 02:33 Patient name changed from Clara\S\\S\Early\S\ to Clara\S\ \S\Early. EDMS 04:24 PCR was scanned into [employer] and attached to record. ml3 04:58 Patient moved to Family 1 aug 14:39 Trend VS was scanned into [employer] and attached to record. gb 14:40 Rhythm Strip was scanned into [employer] and attached to record. gb 14:40 Other: CHECKLIST FOR PT was scanned into [employer] and attached to record. gb 14:41 Other: CERTIFICATE OF IDENTIFICATION was scanned into [employer] and attached to record. gb Administered Medications: 00:49 Drug: EPINEPHrine 1 mg [epinephrine HCl (PF) 1 mg/mL (1 mL) intravenous solution (1 ko2 mL)] Route: IVP; Site: left antecubital; 00:55 Drug: EPINEPHrine 1 mg [epinephrine HCl (PF) 1 mg/mL (1 mL) intravenous solution (1 ko2 mL)] Route: IVP; Site: left antecubital; 01:00 Drug: EPINEPHrine 1 mg [epinephrine HCl (PF) 1 mg/mL (1 mL) intravenous solution (1 ko2 mL)] Route: IVP; Site: right forearm; 01:00 Drug: Sodium Bicarbonate 1 amp Route: IVP; Site: right forearm; ko2 01:06 Drug: EPINEPHrine 1 mg [epinephrine HCl (PF) 1 mg/mL (1 mL) intravenous solution (1 ko2 mL)] Route: IVP; Site: right forearm; 01:10 Drug: EPINEPHrine 1 mg [epinephrine HCl (PF) 1 mg/mL (1 mL) intravenous solution (1 ko2 mL)] Route: IVP; Site: right forearm; 01:14 Drug: EPINEPHrine 1 mg [epinephrine HCl (PF) 1 mg/mL (1 mL) intravenous solution (1 ko2 mL)] Route: IVP; Site: right forearm; 01:20 Drug: EPINEPHrine 1 mg [epinephrine HCl (PF) 1 mg/mL (1 mL) intravenous solution (1 ko2 mL)] Route: IVP; Site: right forearm; 01:26 Drug: EPINEPHrine 1 mg [epinephrine HCl (PF) 1 mg/mL (1 mL) intravenous solution (1 ko2 mL)] Route: IVP; Site: right forearm; 01:29 Drug: EPINEPHrine 1 mg [epinephrine HCl (PF) 1 mg/mL (1 mL) intravenous solution (1 ko2 mL)] Route: IVP; Site: right forearm; Attachments: 02:11 Trend VS ml3 14:39 Trend VS gb 14:40 Rhythm Strip gb RT: 01:40 CPR Time: 55Minutes. Intubation: Performed by Dr. Hamilton. placed orally. 7.5 Fr. ETT jc3 Successful on first attempt. Placement verified by CO2 detector w/ + color change, auscultating bilateral breath sounds, Ventilated with Ambu bag. Order Results: There are currently no results for this order. Outcome: 01:38 Patient . pc 03:27 Code Team Members : Amadou Hamilton MD Respiratory Therapist: Jaime Mandel Other Team ko2 Members: Medications administered by Nursing Mill Oiler Estee Hart. CPR performed by Denitaclau Taylor, MANAGER ELIGIBILITY Rosaura Diamond, MANAGER ELIGIBILITY Jason Galindo, MANAGER ELIGIBILITY Viri Humphries, Charge Nurse Nursing Mill Oiler: Estee Hart ED Pulp Operator: Tamara Fajardo. Rhythm strips are placed in the patient chart. Outcome Patient . Patient : Time of 01:33 Pronounced by Amadou Hamilton MD. Condition: . 05:02 Patient : Time of 01:33 Pronounced by Amadou Hamilton MD Family Notified: mata Magaña [phone] notifed of ED . Body to melba Body released to ME ME notified Amadou Agarwal MD notified Dr Zendejas in ED at timer of resusitation. 05:20 Patient left the ED. aug 05:36 Patient left the ED. ko2 Signatures: Dispatcher [employer] Amadou Villafana MD MD pc Newman, Jill New, RN RN mata Fajardo, Tamara, PSA PSA rb Annabelle House, Reg Reg gb Aurelio, Fidel, Seo Intern Unit ml3 Luis Antonio Nam3 Moody Gauthier RN RN jmb Ogden, Kari, RN RN Sam Mobley jp5 Corrections: (The following items were deleted from the chart) 02:24 01:04 Allergies: Vitamin; yash berrios 02:24 00:48 Presenting complaint: EMS states: pt laying face down on bed when EMS arrived. Pt ko2 responded to painful stimuli with moaning. Pt was maintaining own airway. She started having decreased respirations in the ambulance, EMS started manually bagging. ko2 02:24 00:48 Suicide/Homicide risk assessment- Unable to assess, the patient is critically ko2 ill. ko2 02:24 00:48 Care prior to arrival: See EMS report. assisted ventilation, Saline lock ko2 initiated. Oxygen administered by EMS. ko2 03:04 00:53 CPR assessment: unresponsive, intubated, mechanical ventilation, ko2 ko2 03:04 01:02 CPR assessment: unresponsive, no respiratory effort, pulses absent w/ ko2 compressions, ko2 03:04 01:05 CPR assessment: no respiratory effort, pulses absent w/ compressions, ko2 ko2 03:04 01:08 CPR assessment: unresponsive, pulses absent w/ compressions, ko2 ko2 03:04 01:11 CPR assessment: no respiratory effort, intubated, mechanical ventilation, pulses ko2 absent w/ compressions, ko2 03:04 01:13 CPR assessment: unresponsive, no respiratory effort, intubated, mechanical ko2 ventilation, pulses absent w/ compressions, ko2 03:04 01:16 CPR assessment: unresponsive, agonal respirations, no respiratory effort, pulses ko2 absent w/ compressions, ko2 03:04 01:19 CPR assessment: unresponsive, agonal respirations, no respiratory effort, ko2 intubated, Ambu ventilation, pulses absent w/ compressions, ko2 03:26 00:53 Intubation: 7.5 Fr. ETT placed orally. Performed by Dr. Hamilton Successful on first ko2 attempt. Placement verified by auscultating bilateral breath sounds, Ventilated with Ambu bag. 22 cm at the lip. ko2 03:33 01:08 Defibrillated with 200 joules. ko2 ko2 03:36 00:53 CPR assessment: unresponsive, intubated, Ambu ventilation, ko2 ko2 05:35 00:48 Presenting complaint: EMS states: pt laying face down on bed when EMS arrived. Pt ko2 responded to painful stimuli with moaning. Pt was maintaining own airway. She started having decreased respirations in the ambulance, EMS started manually bagging. Pt is 2 weeks . ko2 Chart Complete MTDD
--- NOTE | 2016-08-11 06:37 | EDDOCDS ---
Physician Documentation [facility] Name: Clara Magaña Age: 26 yrs Sex: Female : 1990 Arrival Date: 08/09/2016 Time: 00:46 Bed Family 1 Private MD: Sarthak Funez [facility] Disposition: 08/09 02:38 Critical Care:. pc Disposition: Patient pronounced on 08/09/16 01:33 by Amadou Hamilton. Impression: Cardiac arrest, cause unspecified - PE suspected. HPI: 01:38 This 26 yrs old Female presents to ER with complaints of Unresponsive. pc 01:38 The history is obtained from the patient's family/friend, EMS providers. She is 2 weeks pc post- from an uncomplicated vaginal delivery and has been in good health. Her S.O. was getting ready to take a shower and she was in the bedroom with him. She suddenly complained of feeling hot and he went ot get a cold face cloth for her. He came out of the bathroom and saw her slump to her hands and knees. She was moaning and then fell forward onto the floor and became unresponsive. He lifted her up onto the bed and EMS was called. They found her unresponsive, moaning to painful stimuli only, with slow respirations and with a pulse.. They transported her here, where on en route, she became apneic and required BVM respirations. She arrived pulseless and unresponsive. ACLS was initiated. She had copious amounts of bloody, frothy sputum suctioned and continually exiting the BVM vent. She did not recover a pulse at any time. She had a wide complex rhythm that with defibrillation at 200/300/360J did not produce a different rhythm. ACLS protocols for PEA were continued without success. AT 0133h, all efforts were terminated. Historical: - Allergies: No known drug Allergies; - Home Meds: 1. Vitamin Oral tab 1 tab once daily - PMHx: none; - PSHx: none; - Family history: Not pertinent. 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 Calves pc soft and supple. Pupils 8mm and not reactive. No spontaneous heart sounds, no spontaneous respirations. . Procedures: 02:22 Intubation: Ventilated with 100% NRB prior to procedure. O2 saturation prior to pc procedure was 80 %. Intubated orally using # 4 Luis blade with 7.5 Fr. ETT. was successful on first attempt. Ventilated with Ambu bag. Placement verified by CO2 detector w/ + color change, auscultating bilateral breath sounds, O2 saturation after procedure was 88 %. MDM: 01:49 Differential Diagnosis: cardiac arrest, suspected PE. The patient has been re-examined pc and re-evaluated. There is no appreciated change of the patient's symptoms at this time. 02:11 Trend VS was scanned into [employer] and attached to record. ml3 02:22 Physician consultation: Dr. Timoteo Pavon regarding patient's condition. 02:31 [facility] Payment Agreement was scanned into [employer] and attached to record. 5 02:31 Financial registration complete. jp5 03:12 EPINEPHrine (1:10,000) 1 mg IVP once ordered. ko2 03:15 EPINEPHrine (1:10,000) 1 mg IVP once ordered. ko2 03:16 EPINEPHrine (1:10,000) 1 mg IVP once ordered. ko2 03:17 Sodium Bicarbonate 1 amp IVP once ordered. ko2 03:18 EPINEPHrine (1:10,000) 1 mg IVP once ordered. ko2 03:19 EPINEPHrine (1:10,000) 1 mg IVP once ordered. ko2 03:22 EPINEPHrine (1:10,000) 1 mg IVP once ordered. ko2 03:23 EPINEPHrine (1:10,000) 1 mg IVP once ordered. ko2 03:24 EPINEPHrine (1:10,000) 1 mg IVP once ordered. ko2 03:24 EPINEPHrine (1:10,000) 1 mg IVP once ordered. ko2 04:24 PCR was scanned into [employer] and attached to record. ml3 14:39 Trend VS was scanned into [employer] and attached to record. gb 14:40 Rhythm Strip was scanned into [employer] and attached to record. gb 14:40 Other: CHECKLIST FOR PT was scanned into [employer] and attached to record. gb 14:41 Other: CERTIFICATE OF IDENTIFICATION was scanned into [employer] and attached to record. gb Administered Medications: 00:49 Drug: EPINEPHrine 1 mg [epinephrine HCl (PF) 1 mg/mL (1 mL) intravenous solution (1 ko2 mL)] Route: IVP; Site: left antecubital; 00:55 Drug: EPINEPHrine 1 mg [epinephrine HCl (PF) 1 mg/mL (1 mL) intravenous solution (1 ko2 mL)] Route: IVP; Site: left antecubital; 01:00 Drug: EPINEPHrine 1 mg [epinephrine HCl (PF) 1 mg/mL (1 mL) intravenous solution (1 ko2 mL)] Route: IVP; Site: right forearm; 01:00 Drug: Sodium Bicarbonate 1 amp Route: IVP; Site: right forearm; ko2 01:06 Drug: EPINEPHrine 1 mg [epinephrine HCl (PF) 1 mg/mL (1 mL) intravenous solution (1 ko2 mL)] Route: IVP; Site: right forearm; 01:10 Drug: EPINEPHrine 1 mg [epinephrine HCl (PF) 1 mg/mL (1 mL) intravenous solution (1 ko2 mL)] Route: IVP; Site: right forearm; 01:14 Drug: EPINEPHrine 1 mg [epinephrine HCl (PF) 1 mg/mL (1 mL) intravenous solution (1 ko2 mL)] Route: IVP; Site: right forearm; 01:20 Drug: EPINEPHrine 1 mg [epinephrine HCl (PF) 1 mg/mL (1 mL) intravenous solution (1 ko2 mL)] Route: IVP; Site: right forearm; 01:26 Drug: EPINEPHrine 1 mg [epinephrine HCl (PF) 1 mg/mL (1 mL) intravenous solution (1 ko2 mL)] Route: IVP; Site: right forearm; 01:29 Drug: EPINEPHrine 1 mg [epinephrine HCl (PF) 1 mg/mL (1 mL) intravenous solution (1 ko2 mL)] Route: IVP; Site: right forearm; Critical Care Time: 02:38 Critical care time: Bedside Care: 50 minutes, Consultation: 10 minutes, Family pc Intervention: 20 minutes. Total time: 80 minutes Signatures: Amadou Hamilton MD MD pc Newman, Jill New, RN RN jan Barnhardt, Gloria, Reg Reg gb Lopresti, Mary-Rizwana, [employer] Screen Printing Racker Unit ml3 Moody Gauthier RN RN jmb Ogden, Kari, RN RN ko2 Sam Nielsen jp5 The chart was reviewed and I authenticate all verbal orders and agree with the evaluation and treatment provided.Corrections: (The following items were deleted from the chart) 02:24 01:04 Allergies: Vitamin; yash berrios Attachments: 02:31 [facility] Payment Agreement jp5 Chart Complete MTDD
== END 2016-08-09 01:33 | disposition expired ==
LOC: M ED 00:46
DX: O99.89 Other specified diseases and conditions complicating pregnancy, childbirth and the puerperium (principal); I46.9 Cardiac arrest, cause unspecified

== ENCOUNTER → 2016-08-09 | Outpatient (REF) ==
[~2016-08-09] MED LIST: ACET50TA PO; COLA100C PO; DIBU1OI TOP; IBUP-1114 PO; IRON65TA PO; MIRA3350 PO; PRENTAB9 PO
== END ==
LOC: M LAB 09:23
DX: Z02.89 Encounter for other administrative examinations (principal)